=== PATIENT | male | born 1955 | race Caucasian/White ===

== ENCOUNTER → 2022-12-31 12:40 | Outpatient (CLI) | payer MEDICARE, SELFPAY | PROVIDERS: PCP Family Medicine; Visit Provider Family Medicine | DX: G47.30 Sleep apnea, unspecified (principal); R06.83 Snoring | CPT/HCPCS: G0399 ==

== ENCOUNTER 2023-06-17 12:15 | Emergency (ER) | payer MEDICARE, SELFPAY ==
[2023-06-17 12:30] VITALS: BP 124/73; PULSE 99; O2SAT 100
[2023-06-17 12:37] VITALS: BP 120/68; PULSE 99; RESP 20; TEMP 36.8; O2SAT 99; BMI 28.8
--- NOTE | 2023-06-17 12:50 | CT_ITS ---
FINAL REPORT TECHNIQUE: After the administration of intravenous contrast, axial images were obtained through the abdomen and pelvis by computed tomography. This study was performed with technique to keep radiation doses as low as reasonably achievable, (ALARA). Individualized dose reduction techniques using automated exposure control or adjustment of the MA and/or KV according to the patient's size were employed. CLINICAL HISTORY: poor PO, ab pain, unintentional wt loss, hx cancer FINDINGS: Abdomen: There is scarring at the lung bases. A low-attenuation focus is seen in the inferior right hepatic lobe with a triangular configuration seen on coronal image 22 of series 1001. This may be related to perfusion anomaly. Gallbladder is distended. The spleen is unremarkable. There are bilateral adrenal nodules measuring up to 1.3 cm on the left. These are nonspecific but favored represent adenomas. The pancreas is unremarkable. There are bilateral parapelvic renal cysts. There is a structure in the right kidney measuring 4.2 x 3.9 cm which is not purely cystic. The aorta is normal in caliber. There is no free fluid or adenopathy. 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 Dense vascular calcifications are seen of the iliacs. Patient is status post femoral-femoral bypass graft. Pelvis: The appendix is not identified. There are postoperative changes of the mid sigmoid colon. The urinary bladder is unremarkable. There is no free fluid or adenopathy. IMPRESSION: Low-attenuation focus in the right hepatic lobe likely due to perfusion anomaly. Bilateral adrenal nodules, favor adenomas. 4.2 cm parapelvic cyst in the right kidney which is likely benign. This demonstrates some increased attenuation in the periphery which may represent compressed adjacent calyces but likely benign cyst. Occluded right common iliac artery with femoral-femoral bypass graft. Reviewed, Interpreted and Dictated by Isac Mehta MD Transcribed by Haley Donnelly Authenticated and [facility]
--- NOTE | 2023-06-17 13:52 | [facility].EDGENADL ---
Discharge Plan Disposition Patient Disposition: Home, Self-Care Prescriptions Prescriptions: New omeprazole 40 mg capsule,delayed release(DR/EC) 40 mg PO DAILY Qty: 30 0RF Referrals Follow up/Referrals: Jareth Licea MD [Staff Physician] - 06/26/23 10:00 am Steve Mcgovern [Primary Care Provider] - See instructions Activity Restrictions/Add. Instructions Additional Instructions/Restrictions: You were evaluated in the emergency department today. Please follow-up outpatient in clinic with Dr. Licea 06/26 at 10 AM. Continue taking your PPI at home. I have provided you with a prescription for this just in case you need it. Return to the emergency department for new or worsening symptoms. Clinical Impressions Clinical Impression: Unintentional weight loss, Early satiety, GERD (gastroesophageal reflux disease) Instructions Patient Instructions: DI for Gastroesophageal Reflux Disease (GERD) Discharge ED Provider: Harish Lowery General Adult HPI General Chief complaint: GI Bleed Stated complaint: unable to eat, weakness, weight loss Time Seen by Provider: 06/17/23 12:19 Mode of Arrival: Ambulatory Source of Information: Patient Limitations: No Limitations Description of Symptoms (Recalled from ER Triage Doc. by RN): pt to ed c/o weight loss and dark stools. pt states he had a dental surgery in may, was given high dose ibuprofen and his pcp has concerns for an ulcer. pt states he wants pt to be seen for gi consult. 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 Patient notes that he had had a dental surgery in May and was given high-dose ibuprofen, and he subsequently had melena. His PCP was concerned for an ulcer so he stopped ibuprofen, and patient has been taking omeprazole. He states that despite taking this, he is unable to eat or drink very much without significant indigestion and symptoms. He is supposed to be scheduled for an outpatient endoscopy, however he states that he has not heard yet about an appointment. He came in today hoping that he can get this taken care of, as he wants a scope to determine if he has a stomach ulcer. He denies any prior endoscopy. Related Data Previous Rx's Medication Instructions Recorded omeprazole 40 mg capsule,delayed 40 mg PO DAILY #30 caps 06/17/23 release Allergies Allergy/AdvReac Type Severity Reaction Status Date / Time No Known Allergies Allergy Verified 06/17/23 14:33 [facility] Disclaimer: The information contained in this section may have been updated after the patient was seen, as this information can be updated by other users. Social History Smoking Status: Never smoker alcohol intake: never current occupational status: employed and retired Travel in the last 8 weeks: None ROS Obtained: Yes All systems reviewed & no additional complaints except as documented Physical Exam General General appearance: alert and in no apparent distress Head Head exam: atraumatic and normocephalic Eye Eye exam: Present normal appearance, PERRL and EOMI ENT ENT exam: Present normal exam, normal oropharynx, mucous membranes moist and normal external ear exam Neck Neck exam: Present normal inspection, full ROM and trachea midline; Absent tenderness Chest Chest inspection: Present normal inspection and symmetric chest wall rise; Absent tenderness Respiratory Respiratory exam: Present normal lung sounds bilaterally; Absent respiratory distress, wheezes, stridor or accessory muscle use Cardiovascular Cardiovascular exam: Present regular rate and normal rhythm Abdominal Exam Abdominal exam: Present soft; Absent distention, tenderness
[2023-06-17 14:51] LABS: Basophils % 0.4 % (0.1-2.0); Eosinophils # 0.2 K/mm3 (0.0-0.4); Eosinophils % 3.4 % (0.1-12.0); Hemoglobin 15.7 g/dL (14.1-18.0); Lymphocytes # 1.7 K/mm3 (0.7-4.5); Lymphocytes % 23.4 % (10-50); Mean Corpuscular HGB Conc 34.2 g/dL (31.8-35.4); Mean Corpuscular Hemoglobin 30.2 pg (27.0-31.2); Mean Corpuscular Volume 88.3 fl (80-94); Mean Platelet Volume 8.6 fl (7.4-10.4); Monocytes # 0.3 K/mm3 (0.1-1.0); Monocytes % 4.7 % (1.7-9.3); Neutrophils # 4.8 K/mm3 (1.8-7.8); Neutrophils % 68.1 % (37.0-80.0); Platelet Count 272 K/mm3 (142-424); Red Blood Count 5.21 M/mm3 (4.60-6.20); Red Cell Distribution Width 15.1 % (11.5-17.5); White Blood Count 7.1 K/mm3 (4.8-10.8)
[2023-06-17 14:59] LABS: Alanine Aminotransferase 50 U/L (12-78); Albumin Level 4.2 g/dl (3.5-5.0); Albumin/Globulin Ratio 1.2 (1.1-1.8); Alkaline Phosphatase 133 U/L (38-126); Anion Gap 12.2 mEq/L (5-15); Aspartate Amino Transferase 23 U/L (17-59); Bilirubin,Total 0.5 mg/dl (0.2-1.3); Blood Urea Nitrogen 22 mg/dl (9-20); Calcium 11.2 mg/dl (8.4-10.2); Carbon Dioxide 24 mmol/L (22.0-30.0); Chloride 101 mmol/L (98-107); Creatinine Clearance Estimated 91 mL/min (50-200); Estimated Glomerular Filt Rate 84 ml/min (>60); GFR (African American) 102 ML/MIN (>60); Globulin 3.5 g/dL (1.3-3.2); Glucose 266 mg/dl (74-100); Lipase 96 U/L (23-300); Magnesium 2.5 mg/dl (1.6-2.3); Phosphorous 3.2 mg/dl (2.5-4.5); Potassium 4.2 mmoL/L (3.5-5.1); Sodium 133 mmol/L (136-145); Total Protein,Serum 7.7 g/dl (6.3-8.2)
[2023-06-17 16:28] VITALS: BP 119/68; PULSE 90; RESP 18; TEMP 36.8; O2SAT 97
== END 2023-06-17 16:29 | disposition home or self-care (01) ==
PROVIDERS: Emergency Medicine; Emergency Provider Emergency Medicine; PCP Family Medicine
DX: K21.9 Gastro-esophageal reflux disease without esophagitis (principal); R63.4 Abnormal weight loss; K92.1 Melena; R68.81 Early satiety
CPT/HCPCS: 74177; 80053; 83690; 83735; 84100; 85025; 99285; Q9967